=== PATIENT | male | born 1985 | race Caucasian/White ===

== ENCOUNTER 2024-12-01 13:02 | Outpatient (RCR) | payer OTHER, SELFPAY | END 2024-12-16 23:59 | disposition home or self-care (01) | LOC: SOT 13:02 | PROVIDERS: Visit Provider Family Medicine | DX: M25.539 Pain in unspecified wrist (principal) | CPT/HCPCS: 97110; 97166; 97530 ==

== ENCOUNTER 2024-12-17 06:00 | Outpatient (RCR) | payer OTHER, SELFPAY | END 2025-01-13 23:59 | disposition home or self-care (01) | LOC: SOT 06:00 | PROVIDERS: Visit Provider Family Medicine | DX: G56.03 Carpal tunnel syndrome, bilateral upper limbs (principal); G56.23 Lesion of ulnar nerve, bilateral upper limbs | CPT/HCPCS: 97110 ==

== ENCOUNTER 2025-01-14 06:00 | Outpatient (RCR) | payer OTHER, SELFPAY | END 2025-02-13 23:59 | disposition home or self-care (01) | LOC: SOT 06:00 | PROVIDERS: Visit Provider Family Medicine | DX: M25.539 Pain in unspecified wrist (principal) | CPT/HCPCS: 97110 ==